=== PATIENT | female | born 1980 ===

== ENCOUNTER 2017-02-19 10:40 | Emergency (ER) | payer BC ==
[2017-02-19 10:51] VITALS: TEMP 98.7
[2017-02-19] MEDS ORDERED: Sodium Chloride 0.9% 1,000 ML IV STA (11:12)
--- NOTE | 2017-02-19 11:19 | ED PDOC ---
Arrival/HPI - General Chief Complaint: Back Pain Time Seen by Provider: 02/19/17 11:05 Historian: Patient - History of Present Illness Narrative History of Present Illness (Text): 02/19/17 11:16 Patient is a 36 year old female who presents with bilateral lower back pain for the past week and dysuria since yesterday. Patient states she saw her PMD and was started on Nitrofurantoin. She reports that she took 3 doses of the antibiotic but the pain persisted so she presented to the Ed today. Patient reports subjective fever which she took Aleve for. Denies abdominal pain, vomiting, vaginal discharge, stool changes. Time/Duration: < week Symptom Onset: Gradual Symptom Course: Unchanged Quality: Dullness Past Medical History - Provider Review Nursing Documentation Reviewed: Yes - Cardiac Hx Cardiac Disorders: No - Pulmonary Hx Respiratory Disorders: No - Neurological Hx Neurological Disorder: No - HEENT Hx HEENT Disorder: No - Renal Hx Renal Disorder: No - Endocrine/Metabolic Hx Endocrine Disorders: No - Hematological/Oncological Hx Blood Disorders: No - Integumentary Hx Dermatological Disorder: No - Musculoskeletal/Rheumatological Hx Musculoskeletal Disorders: No - Gastrointestinal Hx Gastrointestinal Disorders: No - Genitourinary/Gynecological Hx Urinary Tract Infection: Yes - Psychiatric Hx Psychophysiologic Disorder: No Hx Substance Use: No - Surgical History Hx Cholecystectomy: Yes Other/Comment: gastric sleeve, D&C - Anesthesia Hx Anesthesia: Yes Family/Social History - Physician Review Nursing Documentation Reviewed: Yes Family/Social History: Unknown Family HX Smoking Status: Never Smoked Hx Alcohol Use: Yes Hx Substance Use: No Allergies/Home Meds Allergies/Adverse Reactions: Allergies No Known Allergies Allergy (Verified 02/19/17 10:45) Home Medications: Home Meds Medication Instructions Recorded Confirmed Nitrofurantoin Macrocrystal 100 mg PO BID 02/19/17 02/19/17 [Nitrofurantoin] Review of Systems - Review of Systems Constitutional: Other (chills and subjective fever). absent: Fevers Eyes: absent: Vision Changes ENT: absent: Hearing Changes Respiratory: absent: SOB, Cough Cardiovascular: absent: Chest Pain, Palpitations, Edema Gastrointestinal: absent: Abdominal Pain (denies), Stool Changes, Constipation, Diarrhea, Nausea, Vomiting, Appetite Changes Genitourinary Female: Dysuria. absent: Hematuria, Urine Output Changes, Vaginal Bleeding, Vaginal Discharge Musculoskeletal: Back Pain (bilateral lower) Skin: absent: Rash Neurological: absent: Headache, Dizziness Endocrine: absent: Diaphoresis Psychiatric: absent: Depression Physical Exam Vital Signs Reviewed: Yes Vital Signs Temp Pulse Resp BP Pulse Ox 02/19/17 12:30 76 18 125/75 98 02/19/17 10:46 98.7 F 83 16 127/80 100 Temperature: Afebrile Blood Pressure: Normal Pulse: Regular Respiratory Rate: Normal Appearance: Positive for: Well-Appearing, Non-Toxic, Comfortable Pain Distress: None Mental Status: Positive for: Alert and Oriented X 3 - Systems Exam Head: Present: Atraumatic, Normocephalic Pupils: Present: PERRL Extroacular Muscles: Present: EOMI Conjunctiva: Present: Normal Mouth: Present: Moist Mucous Membranes Neck: Present: Normal Range of Motion Respiratory/Chest: Present: Clear to Auscultation, Good Air Exchange. No: Respiratory Distress, Accessory Muscle Use Cardiovascular: Present: Regular Rate and Rhythm, Normal S1, S2. No: Murmurs Abdomen: Present: Normal Bowel Sounds. No: Tenderness, Distention, Peritoneal Signs Back: Present: Normal Inspection. No: CVA Tenderness Upper Extremity: Present: Normal Inspection. No: Cyanosis, Edema Lower Extremity: Present: Normal Inspection. No: Edema Neurological: Present: GCS=15, CN II-XII Intact, Speech Normal Skin: Present: Warm, Dry, Normal Color. No: Rashes Psychiatric: Present: Alert, Oriented x 3, Normal Insight, Normal Concentration Medical Decision Making ED Course and Treatment: Impression: Patient is a 36 year old female who presents with bilateral lower back pain for the past week and dysuria since yesterday. She is well appearing, tolerating po, not , and has normal vitals. Differential Diagnosis included but are not limited to: Pyelonephritis/UTI Plan: -- Toradol, Pyridium -- Labs -- IV fluids -- Urinalysis, Urine culture -- Reassess and disposition Progress Notes: 02/19/17 11:32 Patient was started on nitrofurantoin but due to concern for early pyelonephritis (complaint of back pain and subjective fever and chills), would switch antibiotic to keflex (also considering recent antibiotic sensitivities) 02/19/17 12:21 CBC WNL. Renal function WNL. UA negative but started antibiotics 2 days ago. Ucx sent. Will change antibiotic to keflex and give pyridium. - Lab Interpretations Lab Results: 02/19/17 11:50 02/19/17 11:50 Lab Results 02/19/17 11:50: Sodium 136, Potassium 3.8, Chloride 99, Carbon Dioxide 27, Anion Gap 14, BUN 11, Creatinine 0.7, Est GFR ( Amer) > 60, Est GFR (Non- Af Amer) > 60, Random Glucose 82, Calcium 8.8, Total Bilirubin 0.5, AST 36, ALT 55, Alkaline Phosphatase 76, Total Protein 7.7, Albumin 4.2, Globulin 3.6, Albumin/Globulin Ratio 1.2 02/19/17 11:50: Urine Color Yellow, Urine Appearance Clear, Urine pH 6.0, Ur Specific [place] 1.025, Urine Protein Negative, Urine Glucose (UA) Negative, Urine Ketones Negative, Urine Blood Negative, Urine Nitrate Negative, Urine Bilirubin Negative, Urine Urobilinogen 0.2, Ur Leukocyte Esterase Negative 02/19/17 11:50: WBC 4.3 L, RBC 4.19, Hgb 12.7, Hct 39.0, MCV 93.1, MCH 30.3, MCHC 32.6, RDW 13.5, Plt Count 181, MPV 10.1, Gran % 58.9, Lymph % (Auto) 24.4, [place] % (Auto) 16.2 H, Eos % (Auto) 0.0 L, Baso % (Auto) 0.5, Gran # 2.51, Lymph # 1.0 L, [place] # 0.7 H, Eos # 0.0, Baso # 0.02 - Medication Orders Current Medication Orders: Discontinued Medications Cephalexin Monohydrate (Keflex) 500 mg PO STAT STA PRN Reason: Protocol Stop: 02/19/17 11:31 Last Admin: 02/19/17 11:50 Dose: 500 mg Sodium Chloride (Sodium Chloride 0.9%) 1,000 mls @ 999 mls/hr IV .Q1H1M STA Stop: 02/19/17 12:12 Last Admin: 02/19/17 11:49 Dose: 999 mls/hr Ketorolac Tromethamine (Toradol) 30 mg IVP STAT STA Stop: 02/19/17 11:13 Last Admin: 02/19/17 11:50 Dose: 30 mg Phenazopyridine HCl (Pyridium) 100 mg PO STAT STA Stop: 02/19/17 11:14 Last Admin: 02/19/17 11:50 Dose: 100 mg - Elizabethibe Statement The provider has reviewed the documentation as recorded by the [place] Provider Scribe Attestation: All medical record entries made by the Elizabethibdelroy were at my direction and personally dictated by me. I have reviewed the chart and agree that the record accurately reflects my personal performance of the history, physical exam, medical decision making, and the department course for this patient. I have also personally directed, reviewed, and agree with the discharge instructions and disposition. Disposition/Present on Arrival - Present on Arrival Any Indicators Present on Arrival: No History of DVT/PE: No History of Uncontrolled Diabetes: No Urinary Catheter: No History of Decub. Ulcer: No History Surgical Site Infection Following: None - Disposition Have Diagnosis and Disposition been Completed?: Yes Diagnosis: Cystitis Disposition: HOME/ ROUTINE Disposition Time: 12:21 Patient Plan: Discharge Condition: GOOD Discharge Instructions (ExitCare): Phenazopyridine (By mouth), Urinary Tract Infection in Women (ED) Additional Instructions: Start taking keflex for your infection. Use pyridium as needed for dysuria. Return to ED if condition worsens. Follow-up with PMD within 2 days. Urine culture results will be back in 2 days. Prescriptions: Cephalexin [cephalexin] 500 mg PO TID #30 cap Phenazopyridine HCl [Pyridium] 200 mg PO TID #30 tablet Referrals: Max Osei MD [Primary Care Provider] - Follow up with primary
[2017-02-19 11:58] LABS: ADD MANUAL DIFF? NO
[2017-02-19 11:59] LABS: URINE BILIRUBIN NEGATIVE (NEGATIVE); URINE BLOOD NEGATIVE (NEGATIVE); URINE GLUCOSE (UA) NEGATIVE (NEGATIVE); URINE KETONE NEGATIVE (NEGATIVE); URINE LEUKOCYTE ESTERASE NEGATIVE Leu/uL (NEGATIVE); URINE PROTEIN NEGATIVE mg/dL (<30 mg/dL); URINE UROBILINOGEN 0.2 E.U./dL (<1 E.U./dL)
[2017-02-19 12:02] LABS: URINE APPEARANCE CLEAR (CLEAR); URINE COLOR YELLOW (YELLOW)
[2017-02-19 12:11] LABS: BASO # 0.02 K/mm3 (0.0-2.0); BASO % 0.5 % (0.0-3.0); GRAN # 2.51 (1.4-6.5); GRAN % 58.9 % (50.0-68.0); LYMPH % 24.4 % (22.0-35.0); MEAN CELL VOLUME 93.1 fL (80.0-105.0); MEAN CORPUSCULAR HEMOGLOBIN 30.3 pg (25.0-35.0); MEAN CORPUSCULAR HGB CONC 32.6 g/dl (31.0-37.0); MEAN PLATELET VOLUME 10.1 fl (7.0-11.0); MONO # 0.7 (0.1-0.6); MONO % 16.2 % (1.0-6.0); PLATELET COUNT 181 10^3/uL (120.0-450.0); RED CELL DISTRIBUTION WIDTH 13.5 % (11.5-14.5); WHITE BLOOD COUNT 4.3 10^3/ul (4.5-11.0)
[2017-02-19 12:17] LABS: ALB/GLOB RATIO 1.2 (1.1-1.8); ALKALINE PHOSPHATASE 76 U/L (38-133); ALT/SGPT 55 U/L (7-56); AST/SGOT 36 U/L (15-39); BILIRUBIN,TOTAL 0.5 mg/dL (0.2-1.3); BLOOD UREA NITROGEN 11 mg/dL (7-21); CALCIUM 8.8 mg/dL (8.4-10.5); CARBON DIOXIDE 27 mmol/L (21-33); CHLORIDE 99 mmol/L (98-107); GFR AFRICAN-AMERICAN > 60; GLUCOSE,RANDOM 82 mg/dL (70-110); POTASSIUM 3.8 mmol/L (3.6-5.0); SODIUM 136 mmol/L (132-148); TOTAL PROTEIN 7.7 g/dL (5.8-8.3)
[2017-02-19 12:31] VITALS: BP 125/75; PULSE 76; RESP 18; O2SAT 98
== END 2017-02-19 12:46 | disposition home or self-care (01) ==
LOC: ED 10:40
DX: N30.90 Cystitis, unspecified without hematuria (principal)
CPT/HCPCS: 80053; 81003; 85025; 87086; 96374; 99282; J1885; J7040

== ENCOUNTER 2017-02-21 10:36 | Emergency (ER) | payer BC ==
[2017-02-21 10:47] VITALS: O2SAT 100; BMI 29.0
--- NOTE | 2017-02-21 12:40 | ED PDOC ---
Arrival/HPI - General Chief Complaint: Allergic Reaction Time Seen by Provider: 02/21/17 11:18 Historian: Patient - History of Present Illness Narrative History of Present Illness (Text): 02/21/17 14:12 36 yo F with diffuse red itchy rash which started last night, states that she recently started taking keflex and pyridiumn to treat a UTI, which she started taking 2 days ago. States that she has taken pyridium in the past, she also took motrin and tylenol last night, which she has taken before and is not allergic to. Denies any other new medications, new food, changing her soaps and lotions. She still reports dysuria and developed a fever last night. Otherwise: (-) vomiting, (-) diarrhea, (-) melena, (-) hematochezia, (-) recent travel, (- ) sick contacts, (-) cough, (-) sore throat. Past Medical History - Provider Review Nursing Documentation Reviewed: Yes - Cardiac Hx Cardiac Disorders: No - Pulmonary Hx Respiratory Disorders: No - Neurological Hx Neurological Disorder: No - HEENT Hx HEENT Disorder: No - Renal Hx Renal Disorder: No - Endocrine/Metabolic Hx Endocrine Disorders: No - Hematological/Oncological Hx Blood Disorders: No - Integumentary Hx Dermatological Disorder: No - Musculoskeletal/Rheumatological Hx Musculoskeletal Disorders: No - Gastrointestinal Hx Gastrointestinal Disorders: No - Genitourinary/Gynecological Hx Urinary Tract Infection: Yes - Psychiatric Hx Psychophysiologic Disorder: No Hx Substance Use: No - Surgical History Hx Cholecystectomy: Yes Hx Tubal Ligation: Yes Other/Comment: gastric sleeve, D&C (January,) - Anesthesia Hx Anesthesia: Yes Family/Social History - Physician Review Nursing Documentation Reviewed: Yes Family/Social History: No Known Family HX Smoking Status: Never Smoked Hx Alcohol Use: Yes Hx Substance Use: No Allergies/Home Meds Allergies/Adverse Reactions: Allergies No Known Allergies Allergy (Verified 02/21/17 10:47) Review of Systems - Review of Systems Constitutional: Normal, Fevers. absent: Fatigue, Weight Change ENT: Normal. absent: Hearing Changes, Tinnitus, TMJ Pain, Sore Throat, Sinus Congestion Respiratory: Normal. absent: SOB, Cough, Sputum Cardiovascular: Normal. absent: Chest Pain, Palpitations, Edema Gastrointestinal: Normal. absent: Abdominal Pain, Stool Changes, Hematochezia Musculoskeletal: Normal. absent: Arthralgias, Back Pain, Neck Pain Skin: Normal, Rash. absent: Pruritis, Skin Lesions Physical Exam - Physical Exam Narrative Physical Exam (Text): 02/21/17 14:18 GENERAL APPEARANCE: Patient is awake, alert, oriented x 3, in no acute distress. SKIN: (+) diffuse erythematous papular rash to the face, trunk and all 4 extremities sparing palms and soles. Otherwise (-) excoriations, (-) drainage, ( -) crusting of lesions is present. HENT: (-) conjunctival injection, (-) chemosis. TMs: (-) erythema. Oropharynx: clear (-) tongue or lip swelling, (-) tonsillar exudates, (-) erythema. Airway: patent (-) stridor, (-) hoarseness. Mucous membranes moist. Nares: Patent (-) rhinorrhea. NECK: Supple, (-) meningismus, (-) lymphadenopathy, (-) tenderness. CARDIOVASCULAR: Normal rate and rhythm. (-) murmur, (-) gallop. CHEST: (-) rales, (-) wheezing, (-) dyspnea, (-) stridor. Breath sounds equal bilaterally. ABDOMEN: Soft. (-) tenderness, (-) distention, (-) HSM. NEURO: Mental status: Patient is alert, oriented, and with normal strength and tone. Vital Signs Temp Pulse Resp BP Pulse Ox 02/21/17 13:57 101.1 F H 100 H 16 102/67 100 02/21/17 10:42 103.1 F H 93 H 18 114/72 100 Medical Decision Making ED Course and Treatment: 02/21/17 12:36 36 yo F with diffuse itchy rash, likely allergic reaction to keflex and dysuria. Of note, patient's last ER visit she had a normal UA with no signs of infection and her urine culture was (-) with no growth. Given benadry po, pepcid po and prednisone po. Urine for GC sent. Patient also noted to have a fever, given motrin po. Patient medicated with zithromax 1 g po for possible urethritis. Will Rx doxycycline po. Repeat VS T 101.1 P100 BP102/67 R16 100%RA. On reevaluation, patient appears well, remains awake, alert, oriented 3, is not toxic appearing, in no respiratory distress. Neck remains supple with no signs of meningismus, lungs clear to auscultation. Based on history and exam, patient likely has dysuria, to consider urethritis, rash likely from allergic reaction to medication - keflex, fever, to consider viral illness. Plan will be for patient follow-up with PMD. Patient states she fully agrees with and understands discharge instructions. States that she agrees with the plan and disposition. Verbalized and repeated discharge instructions and plan. I have given the patient opportunity to ask any additional questions. Follow up with primary care physician in 1-2 days without fail. Advised to take medication as prescribed. Return to the emergency room at any time for any new or worsening symptoms. - Medication Orders Current Medication Orders: Discontinued Medications Azithromycin (Zithromax) 1,000 mg PO STAT STA PRN Reason: Protocol Stop: 02/21/17 12:36 Last Admin: 02/21/17 12:54 Dose: 1,000 mg Diphenhydramine HCl (Benadryl) 50 mg PO STAT STA Stop: 02/21/17 12:06 Last Admin: 02/21/17 12:17 Dose: 50 mg Famotidine (Pepcid) 40 mg PO STAT STA Stop: 02/21/17 12:06 Last Admin: 02/21/17 12:20 Dose: 40 mg Ibuprofen (Motrin Tab) 800 mg PO STAT STA Stop: 02/21/17 12:41 Last Admin: 02/21/17 12:54 Dose: 800 mg Prednisone (Prednisone Tab) 60 mg PO ONCE ONE Stop: 02/22/17 12:06 - PA / CERTIFIED MEDICAL CODING SPECIALIST / Resident Statement MD/DO has reviewed & agrees with the documentation as recorded. Disposition/Present on Arrival - Present on Arrival Any Indicators Present on Arrival: No History of DVT/PE: No History of Uncontrolled Diabetes: No Urinary Catheter: No History of Decub. Ulcer: No History Surgical Site Infection Following: None - Disposition Have Diagnosis and Disposition been Completed?: Yes Diagnosis: Dysuria, Rash Disposition: HOME/ ROUTINE Disposition Time: 13:30 Patient Plan: Discharge Condition: GOOD Discharge Instructions (ExitCare): Fever in Adults (ED), Acute Rash (ED), Dysuria (ED) Print Language: CYPRIOT Additional Instructions: Thank you for letting us take care of you today. You were treated for dysuria, consider urethritis, rash likely from allergic reaction to medication - keflex, fever, consider viral illness. The emergency medical care you received today was directed at your acute symptoms. If you were prescribed any medication, please fill it and take as directed. It may take several days for your symptoms to resolve. Return to the Emergency Department if your symptoms worsen, do not improve, or if you have any other problems. Please contact your doctor in 2 days for re-evaluation and follow up. Bring any paperwork you were given at discharge with you along with any medications you are taking to your follow up visit. Our treatment cannot replace ongoing medical care by a primary care provider (PCP) outside of the emergency department. Thank you for allowing the [facility] team to be part of your care today. Prescriptions: DiphenhydrAMINE [Benadryl] 50 mg PO TID #20 cap Doxycycline Monohydrate 100 mg PO BID #14 tablet Famotidine [Pepcid] 40 mg PO DAILY #20 tablet predniSONE [predniSONE Tab] 40 mg PO DAILY #8 tab Referrals: PCP,NO [Primary Care Provider] - Follow up with primary Forms: WORK NOTE
[2017-02-21 13:58] VITALS: BP 102/67; PULSE 100; RESP 16; TEMP 101.1
== END 2017-02-21 14:09 | disposition home or self-care (01) ==
LOC: ED 10:36
DX: R30.0 Dysuria (principal); R21 Rash and other nonspecific skin eruption